=== PATIENT | female | born 1950 | race Caucasian/White ===

== ENCOUNTER → 2016-06-17 | Outpatient (CLI) | payer MEDICARE ==
[~2016-06-17] MED LIST: CALC-444; CYAN100072; DESO15CR; ESTR1VAG; FEXO180T84; FLUO15CR2; FLUT1DIS2; INDA1.25; LEVO88TA2; LOSA50TA2; MESA500C; METF500T4; METH1VIA2; NF-XOP-HFA; OMEP20CA6 PO; RANI-419 PO; SOLI5TAB2; SULF500T7 PO; TR1C15; [UNRECOGNIZED DRUG - CODE]
--- NOTE | 2016-06-17 14:16 | Diagnostic Imaging Report ---
INDICATION: Left thyroid lesion. Thyroid sonography is performed in the routine fashion and compared to 12/09/2015. The right thyroid lobe measures 3.4 x 1.2 x 1.3 cm. Left thyroid lobe measures 2.8 x 1.2 x 1.6 cm. Thyroid isthmus measures about 3 mm. There are no focal lesions in the right thyroid lobe or thyroid isthmus. The left thyroid lobe shows a small hypoechoic lesion measuring 4 x 2 mm. This measures slightly larger than the previous study. There is no new lesion. IMPRESSION: Small hypoechoic lesion in left thyroid lobe. This is too small for biopsy at this time but does measure slightly larger than on 12/09/2015. Consider six-month follow-up study. There is no other abnormal finding. Dictated by: Dictated on workstation # [id number]
== END ==
LOC: RAD 12:18
PROVIDERS: ATTEND Family Medicine
DX: E04.1 Nontoxic single thyroid nodule (principal)
CPT/HCPCS: 76536